=== PATIENT | male | born 1995 | race Caucasian/White ===

== ENCOUNTER 2017-05-02 03:26 | Emergency (ER) | payer OTHER ==
[~2017-05-02] VITALS: Ht 160 cm; Wt 65.0 kg
[2017-05-02 03:29] VITALS: Ht 160 cm; Wt 65.0 kg
--- NOTE | 2017-05-02 03:50 | ERA ---
ER Documentation Chief Complaint Date/Time DATE: 05/02/17 TIME: 03:49 Chief Complaint c/o left knee pain HPI The patient is a 21-year-old male, presenting with acute left knee pain after he jumped off a 7-10 feet fence about 11 PM landed on his left knee. He denies other injury, denies headache, neck pain, chest pain, abdominal pain, vomiting, dysuria, back pain. He smokes, drinks, does cocaine Past medical history: Anxiety and panic disorder Past surgical history: None ROS All systems reviewed and are negative except as per history of present illness. Medications Home Meds Active Scripts Ibuprofen* (Motrin*) 600 Mg Tab, 600 MG PO Q6, #30 TAB Prov:BERNARD BOYD MD 05/02/17 Allergies Allergies: Coded Allergies: No Known Allergy (Unverified , 06/07/12) PMhx/Soc History of Surgery: No Anesthesia Reaction: No Hx Neurological Disorder: No Hx Respiratory Disorders: No Hx Cardiac Disorders: No Hx Psychiatric Problems: No Hx Miscellaneous Medical Probl: No Hx Alcohol Use: No Hx Substance Use: No Hx Tobacco Use: No Physical Exam Vitals Vital Signs Date Time Temp Pulse Resp B/P Pulse Ox O2 Delivery O2 Flow Rate FiO2 05/02/17 05:33 73 20 146/91 100 Room Air 05/02/17 03:29 98.1 89 20 131/91 99 Physical Exam Const: No acute distress. Head: Atraumatic. Eyes: Normal Conjunctiva. ENT: Normal External Ears, Nose and Mouth. Neck: Full range of motion. No meningismus. Resp: Clear to auscultation bilaterally. Cardio: Regular rate and rhythm. Abd: Soft, non distended, normal bowel sounds, non tender. Skin: No petechiae or rashes. Back: No midline or flank tenderness. Ext: Left knee is tender at the patella, no laceration, limited range of motion due to tenderness, no calf tenderness Neur: Awake and alert. No focal deficit Psych: Normal Mood and Affect. Results 24 hrs Current Medications Medications (Trade) Dose Ordered Sig/Dar Route PRN Reason Start Time Stop Time Status Last Admin Dose Admin Ondansetron HCl (Zofran Odt) 4 mg ONCE STAT ODT 05/02/17 04:50 05/02/17 04:52 DC 05/02/17 05:11 Acetaminophen/ Hydrocodone Bitart ([place] ()) 1 tab ONCE ONCE PO 05/02/17 05:00 05/02/17 05:01 DC 05/02/17 05:11 Procedures/MDM [place] [id number] Radiology Main Line: [phone] DIAGNOSTIC IMAGING REPORT Patient: IRAIDA BALL : 1995 Age: 21 Sex: M MR #: [id number] DOS: 05/02/17 0352 Ordering MD: BERNARD BOYD MD Location: E/R Room/Bed: PROCEDURE: Left knee x-ray CLINICAL INDICATION: pain TECHNIQUE: Portable AP, AP tunnel and cross-table lateral views of the left knee were obtained. COMPARISON: None FINDINGS: There is normal mineralization. Oblique fracture of the patella is identified without significant displacement. Large suprapatellar joint effusion is seen. There are no significant degenerative changes. There is soft tissue swelling. IMPRESSION: Large joint effusion. Patellar fracture. Physician Mahogany Date Time Electronically viewed and signed by Physician Mahogany on 05/02/2017 05: 11 CS/ CC: BERNARD BOYD MD MEDICAL MAKING DECISION: The patient is a 21-year-old male, presenting with acute left patella fracture. He was treated with [place] 10 mg p.o. and Zofran ODT and knee immobilizer. Post-immobilizer and neurovascular is intact The differential diagnoses considered include but are not limited to fracture, contusion, sprain, internal derangement. He is stable for outpatient follow-up Departure Diagnosis: Primary Impression: Left patella fracture Condition: Good BERNARD BOYD MD May 02, 2017 03:50
[2017-05-02] MEDS ORDERED: ONDANSETRON (ODT) 4 MG TAB ODT STA (04:50)
[2017-05-02] MEDS ORDERED: HYDROCODONE/APAP (10/325) TAB PO ONE (05:00)
--- NOTE | 2017-05-02 05:11 | RADRPT ---
PROCEDURE: Left knee x-ray CLINICAL INDICATION: pain TECHNIQUE: Portable AP, AP tunnel and cross-table lateral views of the left knee were obtained. COMPARISON: None FINDINGS: There is normal mineralization. Oblique fracture of the patella is identified without significant displacement. Large suprapatellar joint effusion is seen. There are no significant degenerative changes. There is soft tissue swelling. IMPRESSION: Large joint effusion. Patellar fracture. Physician Mahogany Date Time Electronically viewed and signed by Physician Mahogany on 05/02/2017 05:11 CS/
[2017-05-02] MEDS ORDERED: IBUP-1542 PO (05:18)
[2017-05-02 05:33] VITALS: BP 146/91; PULSE 73; RESP 20
== END 2017-05-02 05:39 | disposition home or self-care (01) ==
LOC: E/R 03:26
DX: S82.002A Unspecified fracture of left patella, initial encounter for closed fracture (principal); W17.89XA Other fall from one level to another, initial encounter; Y92.9 Unspecified place or not applicable
CPT/HCPCS: 29505; 73562; Z7502; Z7610